=== PATIENT | male | born 1945 | race Caucasian/White ===

== ENCOUNTER 2017-12-26 06:03 | Day surgery (SDC) | payer MEDICARE ==
[~2017-12-26] VITALS: Ht 170.2 cm; Wt 77.7 kg
[~2017-12-26 06:03] MED LIST: CYCLOPENTOLATE HCL 1% 2 ML OPHTHALMIC SOLUTION ONE; CYCLOPENTOLATE HCL 2% 2 ML OPHTHALMIC SOLUTION OD SCH; DICLOFENAC SODIUM 0.1% 2.5 ML OPHTHALMIC SOLUTION OD SCH; FLURBIPROFEN SODIUM 0.03% 2.5 ML OPHTHALMIC SOLUTION ONE; MOXIFLOXACIN HCL 0.5% 3 ML OPHTHALMIC SOLUTION OD SCH; MOXIFLOXACIN HCL 0.5% 3 ML OPHTHALMIC SOLUTION ONE; PHENYLEPHRINE HCL 2.5% 2 ML OPHTHALMIC SOLUTION ONE; RINGERS SOLUTION,LACTATED 0 ML IV ONE; TETRACAINE HCL/PF 0.5% 4 ML OPHTHALMIC SOLUTION OD SCH; TETRACAINE HCL/PF 0.5% 4 ML OPHTHALMIC SOLUTION ONE; TROPICAMIDE 1% 2 ML OPHTHALMIC SOLUTION ONE
[2017-12-26] MEDS ORDERED: LIDOCAINE HCL/PF 1% 2 ML VIAL IM ONE (06:04)
[2017-12-26] MEDS ORDERED: EPINEPHrine 1:1,000 [1 MG/ML] AMP IM ONE (06:04)
[2017-12-26] MEDS ORDERED: NEOMYCIN/POLYMYXIN B/DEXAMETH 3.5 GM OPHTHALMIC OINTMENT OD ONE (06:04)
[2017-12-26] MEDS ORDERED: POVIDONE-IODINE 10% 15 ML SOLUTION UD TP ONE (06:04)
[2017-12-26] MEDS ORDERED: MIDAZOLAM HCL 2 MG/2 ML VIAL IVP ONE (06:04)
[2017-12-26] MEDS ORDERED: FentaNYL CITRATE-PF 100 MCG/2 ML VIAL IVP ONE (06:04)
[2017-12-26] MEDS ORDERED: HYALURONATE SOD/CHONDROITIN SOD 0.5 ML VIAL IO ONE (06:04)
[2017-12-26] MEDS ORDERED: RINGERS SOLUTION,LACTATED 500 ML IV ONE ×2 (06:17→06:30)
[2017-12-26] MEDS ORDERED: DICLOFENAC SODIUM 0.1% 2.5 ML OPHTHALMIC SOLUTION ONE (06:18)
[2017-12-26] MEDS ORDERED: MOXIFLOXACIN HCL 0.5% 3 ML OPHTHALMIC SOLUTION ONE ×2 (06:18→06:23)
[2017-12-26] MEDS ORDERED: TETRACAINE HCL/PF 0.5% 4 ML OPHTHALMIC SOLUTION ONE (06:18)
[2017-12-26] MEDS ORDERED: CYCLOPENTOLATE HCL 2% 2 ML OPHTHALMIC SOLUTION ONE (06:18)
[2017-12-26] MEDS ORDERED: PHENYLEPHRINE HCL 2.5% 2 ML OPHTHALMIC SOLUTION ONE ×2 (06:18→06:24)
[2017-12-26] MEDS ORDERED: FLURBIPROFEN SODIUM 0.03% 2.5 ML OPHTHALMIC SOLUTION ONE (06:24)
[2017-12-26] MEDS ORDERED: CYCLOPENTOLATE HCL 1% 2 ML OPHTHALMIC SOLUTION ONE (06:25)
[2017-12-26] MEDS ORDERED: TROPICAMIDE 1% 2 ML OPHTHALMIC SOLUTION ONE (06:25)
[2017-12-26] MEDS ORDERED: METF500T4 PO (07:23)
[2017-12-26] MEDS ORDERED: ATOR10TA84 PO (07:23)
[2017-12-26] MEDS ORDERED: LISI-660 PO (07:23)
[2017-12-26] MEDS: MOXIFLOXACIN HCL 0.5% 3 ML OPHTHALMIC SOLUTION OD SCH ×3 (07:31→07:41)
[2017-12-26] MEDS: PHENYLEPHRINE HCL 2.5% 2 ML OPHTHALMIC SOLUTION OD SCH ×3 (07:31→07:41)
[2017-12-26 07:34] LABS: GLUCOMETER DEV NAME(LOC) SDS 5; GLUCOSE,POINT OF CARE 142 MG/DL (70-110)
[2017-12-26] MEDS: CYCLOPENTOLATE HCL 1% 2 ML OPHTHALMIC SOLUTION OD SCH ×3 (07:44→07:54)
[2017-12-26] MEDS: TROPICAMIDE 1% 2 ML OPHTHALMIC SOLUTION OD SCH ×3 (07:44→07:54)
[2017-12-26] MEDS: FLURBIPROFEN SODIUM 0.03% 2.5 ML OPHTHALMIC SOLUTION OD SCH ×3 (07:45→07:54)
== END 2017-12-26 09:25 | disposition home or self-care (01) ==
LOC: SURGERY 06:03
PROVIDERS: ATTEND Ophthalmology
DX: E11.36 Type 2 diabetes mellitus with diabetic cataract (principal); H25.11 Age-related nuclear cataract, right eye; I10 Essential (primary) hypertension; E78.00 Pure hypercholesterolemia, unspecified; Z88.0 Allergy status to penicillin; Z79.84 Long term (current) use of oral hypoglycemic drugs; Z79.899 Other long term (current) drug therapy
CPT/HCPCS: 66984; 82962; C1780; J0171; J2250; J3010; J3490; J7120